=== PATIENT | female | born 1960 | race Caucasian/White ===

== ENCOUNTER 2019-03-02 10:08 | Day surgery (SDC) | payer MEDICARE, MEDICAID ==
[~2019-03-02] VITALS: Ht 160 cm; Wt 68.9 kg
[2019-03-02] VITALS (11 sets, daily range): BP systolic 94–128; BP diastolic 55–79
[2019-03-02] MEDS ORDERED: normal saline 1,000 ML IV SCH (10:35)
[2019-03-02] MEDS ORDERED: glucagon, human recombinant 1mg kit SUBCUT PRN (10:35)
[2019-03-02] MEDS ORDERED: LORazepam 0.5 MG tablet PO PRN (10:35)
[2019-03-02] MEDS ORDERED: dextrose ORAL solution 15 GM/59 ML bottle PO PRN ×2 (10:35)
[2019-03-02] MEDS ORDERED: nitroGLYCERIN 0.4mg SUBLingual tab SL PRN ×2 (10:35→13:35)
[2019-03-02] MEDS ORDERED: diphenhydrAMINE 25mg capsule PO PRN (10:35)
[2019-03-02] MEDS ORDERED: MESSAGE TO PHARMACY PO ONE (10:35)
[2019-03-02] MEDS ORDERED: insulin Lispro (HumaLOG) vial - multi-dose SQ SCH (10:35)
[2019-03-02] MEDS ORDERED: dextrose 50%-water 50ml dispensing syringe IV PRN ×2 (10:35)
[2019-03-02] MEDS ORDERED: LEVO25TA2 PO (11:22)
[2019-03-02] MEDS ORDERED: CLOP75TA15 PO (11:22)
[2019-03-02] MEDS ORDERED: METF500T PO (11:22)
[2019-03-02] MEDS ORDERED: LISI-600 PO (11:22)
[2019-03-02] MEDS ORDERED: METO25TA6 PO (11:22)
[2019-03-02] MEDS ORDERED: DULO-31 PO (11:22)
[2019-03-02] MEDS ORDERED: GABA-532 PO (11:22)
[2019-03-02] MEDS ORDERED: iohexol 350MG/ML 100ml bottle IV ONE (11:49)
[2019-03-02] MEDS ORDERED: iohexol 350 MG/ML 50ML vial IV ONE ×2 (11:49→12:42)
[2019-03-02] MEDS ORDERED: LIDOcaine 1% (10mg/ml)w/preservative injection 20ml MDV ONE (11:49)
[2019-03-02] MEDS ORDERED: midazolam 2 mg/2 ml injection ONE (12:09)
[2019-03-02] MEDS ORDERED: fentaNYL/PF 50MCG/1 ML 2ML syringe ONE (12:09)
[2019-03-02] MEDS ORDERED: proCHLORperazine 10 MG/2 ml inj IV PRN (13:35)
[2019-03-02] MEDS ORDERED: HYDROcodone/acetaminophen 5mg/325mg tablet PO PRN (13:35)
[2019-03-02] MEDS ORDERED: ondansetron/PF 4mg/2ml inj IV PRN (13:35)
[2019-03-02] MEDS ORDERED: OXAZEpam 15mg capsule PO PRN (13:35)
[2019-03-02] MEDS ORDERED: sodium chloride 0.45% 1,000 ML IV SCH (13:35)
[2019-03-02] MEDS ORDERED: HYDROcodone/acetaminophen 10/325mg tab PO PRN (13:35)
--- NOTE | 2019-03-02 16:50 | NUR ---
pt stated she needs to urinate, tried bedpan and pt is unable to go, attempted to place f/c by two RN's and unable to. Allowed pt to ambulate and use the in room restroom, pt stated "I feel so much better!" after using the restroom. Pt is back in bed dsg is still CDI to R groin, pt is in stable condition and VSS.
[2019-03-02] MEDS ORDERED: insulin glargine (Lantus) pen - multi-dose SQ SCH (21:00)
== END 2019-03-02 18:50 | disposition home or self-care (01) ==
LOC: SSTAY O 10:08
PROVIDERS: ATTEND Internal Medicine Cardiovascular Disease
DX: I25.10 Atherosclerotic heart disease of native coronary artery without angina pectoris (principal); I25.82 Chronic total occlusion of coronary artery; I25.2 Old myocardial infarction; I25.5 Ischemic cardiomyopathy; I10 Essential (primary) hypertension; E78.5 Hyperlipidemia, unspecified; I73.9 Peripheral vascular disease, unspecified; Z98.890 Other specified postprocedural states; Z88.6 Allergy status to analgesic agent; Z79.899 Other long term (current) drug therapy; Z79.01 Long term (current) use of anticoagulants
CPT/HCPCS: 82948; 93458; 99152; 99153; A6257; C1769; J1644; J2001; J2250; J3010; J7030; Q0163; Q9967; A4620; C1760; J1815